=== PATIENT | male | born 2000 | race Caucasian/White ===

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

== ENCOUNTER 2019-08-08 17:43 | Emergency (ER) | payer BC ==
[2019-08-08] MEDS ORDERED: Lidocaine 2% EPI 1:200000 MPF* 10 ML VIAL INJ ONE ×2 (18:02→18:20)
[2019-08-08] MEDS ORDERED: Lidocaine 2% w/ EPI 1:200,000* 20 ML SDV VIAL ONE (18:23)
[2019-08-08] MEDS ORDERED: Lidocaine 2% w/ EPI 1:200,000* 20 ML SDV VIAL INJ ONE (18:44)
--- NOTE | 2019-08-08 19:06 | ED ---
Laceration/Wound HPI - HPI Summary HPI Summary: 18 year old male presents with right knee laceration today. He states he got cut while playing lacrosse when he got checked in the knee. He has two lacerations to the area. The area continues to bleed. Tetanus up-to-date. Has no medical conditions. no numbness or tingling. has full ROM. able to ambulate. no foreign body in wound. - History of Current Complaint Stated Complaint: CUT ON RIGHT KNEE Time Seen by Provider: 08/08/19 17:52 Pain Intensity: 5 - Allergy/Home Medications Allergies/Adverse Reactions: Allergies Allergy/AdvReac Type Severity Reaction Status Date / Time No Known Allergies Allergy Verified 08/08/19 17:48 PMH/Surg Hx/FS Hx/Imm Hx Endocrine/Hematology History: Denies: Hx Diabetes Cardiovascular History: Denies: Hx Coronary Artery Disease, Hx Hypertension Neurological History: Reports: Hx Seizures, Other Neuro Impairments/Disorders - epilepsy Infectious Disease History: No Infectious Disease History: Denies: Traveled Outside the [place] in Last 30 Days - Family History Known Family History: Positive: Diabetes - grandfather, Other - MA - father - Social History Alcohol Use: None Hx Substance Use: No Substance Use Type: Reports: None Hx Tobacco Use: No Smoking Status (MU): Never Smoked Tobacco Review of Systems Negative: Fever Negative: Chest Pain Negative: Shortness Of Breath Positive: Other - right knee laceration All Other Systems Reviewed And Are Negative: Yes Physical Exam Triage Information Reviewed: Yes Vital Signs On Initial Exam: Initial Vitals Temp Pulse Resp BP Pulse Ox 98.1 F 106 16 125/87 95 08/08/19 17:44 08/08/19 17:44 08/08/19 17:44 08/08/19 17:44 08/08/19 17:44 Vital Signs Reviewed: Yes Appearance: Positive: Well-Appearing Skin: Positive: Warm, Dry Head/Face: Positive: Normal Head/Face Inspection Eyes: Positive: Normal, Conjunctiva Clear ENT: Positive: Pharynx normal Respiratory/Lung Sounds: Positive: Clear to Auscultation, Breath Sounds Present Cardiovascular: Positive: Normal, RRR Musculoskeletal: Positive: Strength/ROM Intact - right knee, Other - 2cm by 1/ 2cm and 4cm by 1cm irregular flap like to right knee, good pulses Neurological: Positive: Normal Psychiatric: Positive: Normal Procedures - Sedation Patient Received Moderate/Deep Sedation with Procedure: No - Laceration/Wound Repair 1 Location: Other - right knee Description: Linear Anesthesia: Local, 1.0% Length, Depth and Shape: 2cm by 1/2cm Irrigated w/ Saline (ccs): 300 Suture Type: Prolene Number of Sutures: 2 2 Location: Other - right knee Description: Irregular Anesthesia: Local, 1.0% Length, Depth and Shape: 4cm by 1cm irregular flap Irrigated w/ Saline (ccs): 500 Closure: Single Layer Suture Type: Prolene Number of Sutures: 7 Diagnostics - Vital Signs Vital Signs Temp Pulse Resp BP Pulse Ox 08/08/19 17:44 98.1 F 106 16 125/87 95 - Laboratory Lab Statement: Any lab studies that have been ordered have been reviewed, and results considered in the medical decision making process. Laceration Repair Course/Dx - Course Course Of Treatment: 18 year old male presents with right knee laceration today. He states he got cut while playing lacrosse when he got checked in the knee. He has two lacerations to the area. The area continues to bleed. Tetanus up-to-date. Has no medical conditions. no numbness or tingling. has full ROM. able to ambulate. no foreign body in wound. On exam has 2cm by 1/2cm and 4cm by 1cm irregular flap like laceraion to right knee. Cleaned area and placed 2 sutures in the smaller laceration and 7 suture in the other. Full range of motion of the knee. Neurovascularly intact. Told to the area clean and dry. Patient understands and agrees with the plan. - Differential Dx Differental Diagnoses: Abrasion, Avulsion, Laceration - Clinical Impression Provider Diagnoses: Laceration of right knee Discharge ED - Sign-Out/Discharge Documenting (check all that apply): Patient Departure - Discharge Plan Condition: Good Disposition: HOME Patient Education Materials: Care For Your Stitches (ED) Referrals: Jackson Vicente MD [Primary Care Provider] - Additional Instructions: Take Tylenol or ibuprofen for pain every 6 hours as needed Keep area clean and dry for 24 hours Return to ED or primary in 8-10 days to have sutures removed Return to ED if develop signs of infection such as fever, spreading redness, or pus. - Billing Disposition and Condition Condition: GOOD Disposition: Home
[2019-08-08 19:10] VITALS: BP 130/79
== END 2019-08-08 19:09 | disposition home or self-care (01) ==
LOC: ED 17:43
DX: S81.011A Laceration without foreign body, right knee, initial encounter (principal); W45.8XXA Other foreign body or object entering through skin, initial encounter; W21.89XA Striking against or struck by other sports equipment, initial encounter; Y93.65 Activity, lacrosse and field hockey; Y92.9 Unspecified place or not applicable; R56.9 Unspecified convulsions
CPT/HCPCS: 12001; 12002; 96374; 99282